=== PATIENT | female | born 1950 | race Two or more races ===

== ENCOUNTER 2017-09-17 14:09 | Outpatient (CLI) | payer OTHER | END 2017-09-17 14:20 | disposition home or self-care (01) | LOC: RAD 14:09 | DX: M17.11 Unilateral primary osteoarthritis, right knee (principal); M12.861 Other specific arthropathies, not elsewhere classified, right knee ==

== ENCOUNTER 2018-04-20 14:58 | Emergency (ER) | payer OTHER ==
[~2018-04-20] VITALS: Ht 165.1 cm; Wt 66.2 kg
[2018-04-20] MEDS ORDERED: CLONAZEPAM1 M1 (15:20)
[2018-04-20] MEDS ORDERED: NORVASC5 MG (15:20)
[2018-04-20] MEDS ORDERED: PAXIL40 MG (15:20)
[2018-04-20] MEDS ORDERED: HYZAAR 100-251 EACH (15:20)
== END 2018-04-20 19:08 | disposition home or self-care (01) ==
LOC: ER 14:58
DX: K52.9 Noninfective gastroenteritis and colitis, unspecified (principal); E86.0 Dehydration

== ENCOUNTER 2018-04-21 18:42 | Inpatient (IN) | payer OTHER ==
[~2018-04-21] VITALS: Ht 162.6 cm; Wt 68.0 kg
[~2018-04-21 18:42] MED LIST: CLONAZEPAM1 M1; HYZAAR 100-251 EACH; NORVASC5 MG; PAXIL40 MG
== END 2018-05-11 08:05 | disposition home or self-care (01) | DRG 391 ==
LOC: MEDJ 18:42
PROC: 3E0436Z Introduction of Nutritional Substance into Central Vein, Percutaneous Approach (ICD-10-PCS; 2018-04-22)
PROC: 02HV33Z Insertion of Infusion Device into Superior Vena Cava, Percutaneous Approach (ICD-10-PCS; 2018-04-22)
PROC: B246ZZZ Ultrasonography of Right and Left Heart (ICD-10-PCS; 2018-04-22)
PROC: 0T9030Z Drainage of Right Kidney with Drainage Device, Percutaneous Approach (ICD-10-PCS; principal; 2018-04-26)
PROC: 3E0F7GC Introduction of Other Therapeutic Substance into Respiratory Tract, Via Natural or Artificial Opening (ICD-10-PCS; 2018-04-26)
PROC: BW25Y0Z Computerized Tomography (CT Scan) of Chest, Abdomen and Pelvis using Other Contrast, Unenhanced and Enhanced (ICD-10-PCS; 2018-04-26)
PROC: BB24ZZZ Computerized Tomography (CT Scan) of Bilateral Lungs (ICD-10-PCS; 2018-04-26)
PROC: BW25Y0Z Computerized Tomography (CT Scan) of Chest, Abdomen and Pelvis using Other Contrast, Unenhanced and Enhanced (ICD-10-PCS; 2018-04-29)
PROC: BW24Y0Z Computerized Tomography (CT Scan) of Chest and Abdomen using Other Contrast, Unenhanced and Enhanced (ICD-10-PCS; 2018-05-04)
PROC: 0W993ZX Drainage of Right Pleural Cavity, Percutaneous Approach, Diagnostic (ICD-10-PCS; 2018-05-05)
PROC: 0T9030Z Drainage of Right Kidney with Drainage Device, Percutaneous Approach (ICD-10-PCS; 2018-05-05)
PROC: BW24ZZZ Computerized Tomography (CT Scan) of Chest and Abdomen (ICD-10-PCS; 2018-05-10)
DX: K57.20 Diverticulitis of large intestine with perforation and abscess without bleeding (principal); N15.1 Renal and perinephric abscess; E87.1 Hypo-osmolality and hyponatremia; R78.81 Bacteremia; J98.11 Atelectasis; J90 Pleural effusion, not elsewhere classified; E87.6 Hypokalemia; I10 Essential (primary) hypertension; E78.4 Other hyperlipidemia; F41.8 Other specified anxiety disorders; E86.0 Dehydration; B96.29 Other Escherichia coli [E. coli] as the cause of diseases classified elsewhere; K52.89 Other specified noninfective gastroenteritis and colitis; F17.210 Nicotine dependence, cigarettes, uncomplicated
CPT/HCPCS: 240; 71275

== ENCOUNTER 2018-05-26 11:18 | Outpatient (CLI) | payer OTHER | END 2018-05-26 15:46 | disposition home or self-care (01) | LOC: SONOGRAMA 11:18 | DX: D30 Benign neoplasm of urinary organs (principal); N28.1 Cyst of kidney, acquired; N18.1 Chronic kidney disease, stage 1 ==

== ENCOUNTER → 2018-06-19 09:26 | Outpatient (CLI) | payer OTHER | END | disposition home or self-care (01) | LOC: LAB 09:26 | DX: R79.89 Other specified abnormal findings of blood chemistry (principal); Z51.81 Encounter for therapeutic drug level monitoring ==

== ENCOUNTER 2018-06-19 09:31 | Outpatient (CLI) | payer OTHER | END 2018-06-19 15:57 | disposition home or self-care (01) | LOC: TOM 09:31 | DX: K59.09 Other constipation (principal); K75.3 Granulomatous hepatitis, not elsewhere classified ==

== ENCOUNTER 2018-09-07 13:50 | Outpatient (CLI) | payer OTHER | END 2018-09-07 14:02 | disposition home or self-care (01) | LOC: LAB 13:50 | DX: N39.0 Urinary tract infection, site not specified (principal); D64.89 Other specified anemias ==

== ENCOUNTER 2021-06-08 10:54 | Outpatient (CLI) | payer OTHER | END 2021-06-08 11:06 | disposition home or self-care (01) | LOC: SONOGRAMA 10:54 | PROVIDERS: ATTEND Internal Medicine | DX: M25.512 Pain in left shoulder (principal); R22.1 Localized swelling, mass and lump, neck ==

== ENCOUNTER 2021-12-12 14:10 | Outpatient (CLI) | payer OTHER | END 2021-12-12 14:20 | disposition home or self-care (01) | LOC: SONOGRAMA 14:10 | PROVIDERS: ATTEND Internal Medicine | DX: M25.512 Pain in left shoulder (principal); S40.912A Unspecified superficial injury of left shoulder, initial encounter ==

== ENCOUNTER 2022-01-11 09:54 | Outpatient (CLI) | payer OTHER | END 2022-01-11 09:58 | disposition home or self-care (01) | LOC: SONOGRAMA 09:54 | PROVIDERS: ATTEND Internal Medicine | DX: R10.84 Generalized abdominal pain (principal); Z87.448 Personal history of other diseases of urinary system ==

== ENCOUNTER 2022-03-29 07:50 | Outpatient (CLI) | payer OTHER | END 2022-03-29 15:03 | disposition home or self-care (01) | LOC: NUCLEAR 07:50 | PROVIDERS: ATTEND Internal Medicine | DX: R07.9 Chest pain, unspecified (principal); I11.9 Hypertensive heart disease without heart failure; E78.2 Mixed hyperlipidemia; R73.9 Hyperglycemia, unspecified ==

== ENCOUNTER 2022-09-27 13:46 | Outpatient (CLI) | payer OTHER | END 2022-09-27 13:56 | disposition home or self-care (01) | LOC: RAD 13:46 | PROVIDERS: ATTEND Internal Medicine | DX: J45.909 Unspecified asthma, uncomplicated (principal); I10 Essential (primary) hypertension ==

== ENCOUNTER 2025-01-28 10:35 | Outpatient (CLI) | payer OTHER ==
[2025-01-28 11:43] LABS: BASO % 0.8 % (0.1-1.2); EOS # 0.19 (0.04-0.54); EOS % 3.1 % (0.7-7.0); HEMATOCRIT 41.6 % (34.1-44.9); HEMOGLOBIN 13.7 g/dL (11.2-15.7); LYMPH # 1.09 (1.18-3.74); LYMPH % 17.6 % (19.3-53.1); MEAN CORPUSCULAR HEMOGLOBIN 28.6 pg (25.6-32.2); MONO # 0.43 (0.24-0.82); MONO % 6.9 % (4.7-12.5); NEUT # 4.41 (1.56-6.13); NEUT % 71.3 % (34.0-71.1); PLATELET COUNT 309 K/uL (163-369); RED BLOOD COUNT 4.79 M/uL (3.93-5.22); RED CELL DISTRIBUTION WIDTH 12.4 % (11.6-14.4)
[2025-01-28 11:47] LABS: URINE APPEARANCE Clear; URINE BILIRRUBIN Negative (NEGATIVE); URINE BLOOD Negative; URINE COLOR Yellow; URINE GLUCOSE Negative (NEGATIVE); URINE KETONE Negative (NEGATIVE); URINE LEUKOCYTE Negative; URINE NITRATE Negative; URINE PROTEIN Negative (NEGATIVE); URINE UROBILINOGEN 0.2 E.U./dl
[2025-01-28 11:52] LABS: URINE BACTERIA 67.2 uL (0.0-1933); URINE EPITHELIAL CELLS 4.7 uL (0.0-38.8); URINE RBC 6.6 uL (0.0-20.8); URINE WBC 5.3 uL (0.0-23.2)
[2025-01-28 12:22] LABS: ALBUMIN 3.9 gm/dL (3.4-5.0); BILIRUBIN TOTAL 0.46 mg/dL (0.3-1.2); CALCIUM 9.2 mg/dL (8.5-10.1); CHOL HDL RATIO 2.3 (0-5.0); CREATININE SERUM 0.6 mg/dL (0.55-1.02); GFR 98.27; T4 FREE 0.84 NG/ML (0.76-1.46); TOTAL PROTEIN 6.9 gm/dL (6.4-8.2); TSH 0.866 uIU/mL (0.358-3.74)
[2025-01-28 12:55] LABS: URINE CAST 0.29 uL (0.0-1.40)
== END 2025-01-28 10:44 | disposition home or self-care (01) ==
LOC: LAB 10:35
PROVIDERS: ATTEND Internal Medicine
DX: D64.9 Anemia, unspecified (principal); I10 Essential (primary) hypertension; E11.9 Type 2 diabetes mellitus without complications; E03.9 Hypothyroidism, unspecified; E78.2 Mixed hyperlipidemia; E55.9 Vitamin D deficiency, unspecified; Z12.11 Encounter for screening for malignant neoplasm of colon; N39.0 Urinary tract infection, site not specified

== ENCOUNTER → 2025-01-28 | Outpatient (CLI) | payer OTHER | END | disposition home or self-care (01) | LOC: TOM 01-27 11:02 | PROVIDERS: ATTEND Internal Medicine | DX: R51.9 Headache, unspecified (principal) ==